=== PATIENT | female | born 1955 | race American Indian/Alaskan Native ===

== ENCOUNTER 2018-04-18 17:07 | Inpatient (IN) | payer MEDICARE ==
[2018-04-18] MEDS ORDERED: APRESOLINE IV ONE ×2 (17:32→21:54)
--- NOTE | 2018-04-18 17:33 | Emergency Department Report ---
ED General Adult HPI - General Chief complaint: High BP Stated complaint: HBP/HEADACHE/CHEST PAIN Time Seen by Provider: 04/18/18 17:22 Source: patient, RN notes reviewed Mode of arrival: Ambulatory Limitations: No Limitations - History of Present Illness Initial comments: Primary care Dr.: Dr. Marrero Past medical history: Multiple strokes, on permanent anticoagulation,; xarelto Hypertension, diabetes, right-sided thoracic wall port This is a 62-year-old female who is not known to this provider previously. Patient presents to the ER with a complaint of high blood pressure, which is accompanied by nontraumatic headache, which is midline, parietal, not sudden or thunderclap in nature, with an accompanying complaint of left-sided chest discomfort, chest pain, and intermittent left-sided arm weakness. The patient also endorsed to triage and her blurry vision, light sensitivity, and episodes of confusion. To this provider, the patient does not endorse confusion, blurry vision. Her symptoms are intermittent, do not radiate anywhere, and worsened when she moves her left arm, and when she "gets anxious." She reports compliance with her medications. -: Gradual Location: head, chest, left Radiation: non-radiation Quality: aching Consistency: intermittent Improves with: other Worsens with: other Associated Symptoms: confusion, chest pain, headaches, loss of appetite, malaise, weakness. denies: cough, diaphoresis, fever/chills, nausea/vomiting, rash, seizure, shortness of breath, syncope - Related Data Allergies Allergy/AdvReac Type Severity Reaction Status Date / Time codeine Allergy Itching Verified 04/18/18 17:10 latex Allergy Itching Verified 04/18/18 17:10 paroxetine [From Paxil] Allergy Unknown Verified 04/18/18 17:10 Penicillins Allergy Unknown Verified 04/18/18 17:10 Tetracyclines Allergy Unknown Verified 04/18/18 17:10 tomato Allergy Itching Verified 04/18/18 17:10 ED Review of Systems ROS: Stated complaint: HBP/HEADACHE/CHEST PAIN Other details as noted in HPI Constitutional: malaise. denies: fever Eyes: vision change ENT: denies: epistaxis Respiratory: denies: cough Cardiovascular: chest pain Gastrointestinal: denies: vomiting Genitourinary: denies: dysuria Musculoskeletal: arthralgia, myalgia Skin: denies: lesions Neurological: headache, weakness, numbness, paresthesias Psychiatric: anxiety ED Past Medical Hx - Past Medical History Previous Medical History?: Yes Hx Hypertension: Yes Hx Diabetes: Yes Additional medical history: MRSA - Surgical History Past Surgical History?: Yes Hx Appendectomy: Yes Additional Surgical History: hysterectomy. discectomy. LLE "hardware insertion". heart ablation - Social History Smoking Status: Current Every Day Smoker Substance Use Type: Alcohol ED Physical Exam - General Limitations: No Limitations General appearance: alert, anxious - Head Head exam: Present: atraumatic, normocephalic - Eye Eye exam: Present: normal appearance, PERRL, EOMI, other (visual acuity intact to finger counting, color perception, reading at a close distance). Absent: nystagmus - ENT ENT exam: Present: normal exam, normal orophraynx, mucous membranes moist, normal external ear exam - Neck Neck exam: Present: normal inspection, full ROM. Absent: tenderness, meningismus - Respiratory Respiratory exam: Present: normal lung sounds bilaterally. Absent: respiratory distress - Cardiovascular Cardiovascular Exam: Present: normal rhythm, bradycardia, normal heart sounds. Absent: tachycardia, irregular rhythm, systolic murmur, diastolic murmur, rubs, gallop - GI/Abdominal GI/Abdominal exam: Present: soft. Absent: distended, tenderness, guarding, rebound, rigid, pulsatile mass - Extremities Exam Extremities exam: Present: normal inspection, full ROM, other (2+ pulses noted in the bilateral upper, lower extremities. Compartments soft. No long bony tenderness. The pelvis is stable.). Absent: pedal edema, joint swelling, calf tenderness - Back Exam Back exam: Present: normal inspection, full ROM. Absent: tenderness, CVA tenderness (R), paraspinal tenderness, vertebral tenderness - Neurological Exam Neurological exam: Present: alert, oriented X3, normal gait, other (Extraocular movements intact. Tongue midline. No facial droop. Facial sensation intact to light touch in the V1, V2, V3 distribution bilaterally. 5 and 5 strength in 4 extremities.. Sensation is intact to light touch in 4 extremities.). Absent: motor sensory deficit - Psychiatric Psychiatric exam: Present: anxious - Skin Skin exam: Present: warm, dry, intact, normal color. Absent: rash ED Course Vital Signs 04/18/18 04/18/18 17:10 18:59 Temperature 97.9 F Pulse Rate 64 50 L Respiratory 18 Rate Blood Pressure 241/117 238/120 O2 Sat by Pulse 99 Oximetry - Reevaluation(s) Reevaluation #1: 04/18/18 19:33 Differential diagnosis, including but not limited to: Vertebrobasilar migraine, complex migraine, transient ischemic attack, stroke, acute coronary syndrome, pneumonia Assessment and plan: 62-year-old female with nonspecific neurologic symptoms and chest discomfort. Patient is on systemic anticoagulation, has equal pulses on the upper and lower extremities, is not tachycardic, is not hypoxic, and for these reasons I doubt a pulmonary embolus. Mediastinum appears to be within normal limits on the chest x-ray, and has equal pulses in the upper, lower extremities, therefore doubt aortic disease. Patient has an NIH score of 0, and is on systemic anticoagulation, and therefore is not a TPA candidate. Symptoms have been going on for greater than 24 hours, and therefore does not require emergent endovascular imaging. The patient is currently resting on a stretcher, and is noted to playing with a cellular phone. We will provide blood pressure control, symptom control, and admitted to the medical service for further evaluation for neurologic symptoms, chest discomfort, and blood pressure control. Reevaluation #2: 04/18/18 21:27 Dr. Marcano has accepted the patient to the medical service. ED Medical Decision Making - Lab Data Result diagrams: 04/18/18 19:00 04/18/18 19:00 Vital Signs 04/18/18 04/18/18 17:10 18:59 Temperature 97.9 F Pulse Rate 64 50 L Respiratory 18 Rate Blood Pressure 241/117 238/120 O2 Sat by Pulse 99 Oximetry Lab Results 04/18/18 Range/Units 19:00 WBC 5.5 (4.5-11.0) K/mm3 RBC 4.30 (3.65-5.03) M/mm3 Hgb 13.8 (10.1-14.3) gm/dl Hct 40.1 (30.3-42.9) % MCV 93 (79-97) fl MCH 32 (28-32) pg MCHC 34 (30-34) % RDW 12.8 L (13.2-15.2) % Plt Count 232 (140-440) K/mm3 Lymph % (Auto) 36.6 H (13.4-35.0) % [place] % (Auto) 12.7 H (0.0-7.3) % Eos % (Auto) 3.7 (0.0-4.3) % Baso % (Auto) 2.5 H (0.0-1.8) % Lymph # 2.0 (1.2-5.4) K/mm3 [place] # 0.7 (0.0-0.8) K/mm3 Eos # 0.2 (0.0-0.4) K/mm3 Baso # 0.1 (0.0-0.1) K/mm3 Seg Neutrophils % 44.5 (40.0-70.0) % Seg Neutrophils # 2.5 (1.8-7.7) K/mm3 Lab Results 04/18/18 04/18/18 04/18/18 Range/Units 19:00 19:00 19:00 WBC 5.5 (4.5-11.0) K/mm3 RBC 4.30 (3.65-5.03) M/mm3 Hgb 13.8 (10.1-14.3) gm/dl Hct 40.1 (30.3-42.9) % MCV 93 (79-97) fl MCH 32 (28-32) pg MCHC 34 (30-34) % RDW 12.8 L (13.2-15.2) % Plt Count 232 (140-440) K/mm3 Lymph % (Auto) 36.6 H (13.4-35.0) % [place] % (Auto) 12.7 H (0.0-7.3) % Eos % (Auto) 3.7 (0.0-4.3) % Baso % (Auto) 2.5 H (0.0-1.8) % Lymph # 2.0 (1.2-5.4) K/mm3 Isabela # 0.7 (0.0-0.8) K/mm3 Eos # 0.2 (0.0-0.4) K/mm3 Baso # 0.1 (0.0-0.1) K/mm3 Seg Neutrophils % 44.5 (40.0-70.0) % Seg Neutrophils # 2.5 (1.8-7.7) K/mm3 PT 13.1 (12.2-14.9) Sec. INR 0.95 (0.87-1.13) APTT 29.9 (24.2-36.6) Sec. Thrombin Time 17.7 (15.1-19.6) Sec. Sodium (137-145) mmol/L Potassium (3.6-5.0) mmol/L Chloride (98-107) mmol/L Carbon Dioxide (22-30) mmol/L Anion Gap mmol/L BUN (7-17) mg/dL Creatinine (0.7-1.2) mg/dL Estimated GFR ml/min BUN/Creatinine Ratio % Glucose (65-100) mg/dL Calcium (8.4-10.2) mg/dL Total Bilirubin (0.1-1.2) mg/dL AST (5-40) units/L ALT (7-56) units/L Alkaline Phosphatase (35-129) units/L Total Creatine Kinase 98 (30-135) units/L CK-MB (CK-2) 2.4 (0.0-4.0) ng/mL CK-MB (CK-2) Rel Index 2.4 (0-4) Troponin T < 0.010 (0.00-0.029) ng/mL Total Protein (6.3-8.2) g/dL Albumin (3.9-5) g/dL Albumin/Globulin Ratio % Salicylates (2.8-20.0) mg/dL Acetaminophen (10.0-30.0) ug/mL Plasma/Serum Alcohol (0-0.07) % 04/18/18 04/18/18 04/18/18 Range/Units 19:00 19:00 19:00 WBC (4.5-11.0) K/mm3 RBC (3.65-5.03) M/mm3 Hgb (10.1-14.3) gm/dl Hct (30.3-42.9) % MCV (79-97) fl MCH (28-32) pg MCHC (30-34) % RDW (13.2-15.2) % Plt Count (140-440) K/mm3 Lymph % (Auto) (13.4-35.0) % [place] % (Auto) (0.0-7.3) % Eos % (Auto) (0.0-4.3) % Baso % (Auto) (0.0-1.8) % Lymph # (1.2-5.4) K/mm3 Isabel[place] # (0.0-0.8) K/mm3 Eos # (0.0-0.4) K/mm3 Baso # (0.0-0.1) K/mm3 Seg Neutrophils % (40.0-70.0) % Seg Neutrophils # (1.8-7.7) K/mm3 PT (12.2-14.9) Sec. INR (0.87-1.13) APTT (24.2-36.6) Sec. Thrombin Time (15.1-19.6) Sec. Sodium 143 (137-145) mmol/L Potassium 3.6 (3.6-5.0) mmol/L Chloride 104.4 (98-107) mmol/L Carbon Dioxide 28 (22-30) mmol/L Anion Gap 14 mmol/L BUN 24 H (7-17) mg/dL Creatinine 1.0 (0.7-1.2) mg/dL Estimated GFR > 60 ml/min BUN/Creatinine Ratio 24 % Glucose 87 (65-100) mg/dL Calcium 9.6 (8.4-10.2) mg/dL Total Bilirubin 0.30 (0.1-1.2) mg/dL AST 65 H (5-40) units/L ALT 63 H (7-56) units/L Alkaline Phosphatase 87 (35-129) units/L Total Creatine Kinase (30-135) units/L CK-MB (CK-2) (0.0-4.0) ng/mL CK-MB (CK-2) Rel Index (0-4) Troponin T (0.00-0.029) ng/mL Total Protein 7.5 (6.3-8.2) g/dL Albumin 3.9 (3.9-5) g/dL Albumin/Globulin Ratio 1.1 % Salicylates < 0.3 L (2.8-20.0) mg/dL Acetaminophen (10.0-30.0) ug/mL Plasma/Serum Alcohol < 0.01 (0-0.07) % 04/18/18 Range/Units 19:00 WBC (4.5-11.0) K/mm3 RBC (3.65-5.03) M/mm3 Hgb (10.1-14.3) gm/dl Hct (30.3-42.9) % MCV (79-97) fl MCH (28-32) pg MCHC (30-34) % RDW (13.2-15.2) % Plt Count (140-440) K/mm3 Lymph % (Auto) (13.4-35.0) % [place] % (Auto) (0.0-7.3) % Eos % (Auto) (0.0-4.3) % Baso % (Auto) (0.0-1.8) % Lymph # (1.2-5.4) K/mm3 [place] # (0.0-0.8) K/mm3 Eos # (0.0-0.4) K/mm3 Baso # (0.0-0.1) K/mm3 Seg Neutrophils % (40.0-70.0) % Seg Neutrophils # (1.8-7.7) K/mm3 PT (12.2-14.9) Sec. INR (0.87-1.13) APTT (24.2-36.6) Sec. Thrombin Time (15.1-19.6) Sec. Sodium (137-145) mmol/L Potassium (3.6-5.0) mmol/L Chloride (98-107) mmol/L Carbon Dioxide (22-30) mmol/L Anion Gap mmol/L BUN (7-17) mg/dL Creatinine (0.7-1.2) mg/dL Estimated GFR ml/min BUN/Creatinine Ratio % Glucose (65-100) mg/dL Calcium (8.4-10.2) mg/dL Total Bilirubin (0.1-1.2) mg/dL AST (5-40) units/L ALT (7-56) units/L Alkaline Phosphatase (35-129) units/L Total Creatine Kinase (30-135) units/L CK-MB (CK-2) (0.0-4.0) ng/mL CK-MB (CK-2) Rel Index (0-4) Troponin T (0.00-0.029) ng/mL Total Protein (6.3-8.2) g/dL Albumin (3.9-5) g/dL Albumin/Globulin Ratio % Salicylates (2.8-20.0) mg/dL Acetaminophen < 5.0 L (10.0-30.0) ug/mL Plasma/Serum Alcohol (0-0.07) % - EKG Data -: EKG Interpreted by Me EKG shows normal: sinus rhythm - EKG Data 04/18/18 19:32 Limited by motion artifact. Sinus bradycardia, left axis deviation, QTC prolonged, incomplete right bundle branch block, abnormal EKG, not consistent with ST elevation myocardial infarction. - Radiology Data Radiology results: report reviewed, image reviewed X-ray of the chest is negative for acute disease. Noncontrast CT scan of brain is negative for acute disease. Critical care attestation.: If time is entered above; I have spent that time in minutes in the direct care of this critically ill patient, excluding procedure time. ED Disposition Clinical Impression: Hypertensive urgency, TIA (transient ischemic attack), Chest pain Disposition: OP ADMIT IP TO THIS HOSP Is pt being admited?: Yes Does the pt Need Aspirin: Yes Condition: Stable Instructions: Chest Pain (ED) Referrals: KELLIE ALICIA MD [Primary Care Provider] - 3-5 Days - Assessment Assessment Interval: Baseline - Level of Consciousness 1a. Level of Consciousness: alert/keenly responsive - LOC Questions 1b. LOC Questions: answers both correctly - LOC Command 1c. LOC Commands: performs tasks correctly - Best Gaze 2. Best Gaze: normal - Visual 3. Visual: no visual loss - Facial Palsy 4. Facial Palsy: normal symmetrical movement - Motor Arm 5b. Motor Arm Right: no drift 5a. Motor Arm Left: no drift - Motor Leg 6b. Motor Leg Right: no drift 6a. Motor Leg Left: no drift - Limb Ataxia 7. Limb Ataxia: absent - Sensory 8. Sensory: normal - Best Language 9. Best Language: no aphasia - Dysarthria 10. Dysarthria: normal - Extinction and Inattention 11. Extinction/Inattention: no abnormality - Scoring Total Score: 0 Stroke Severity: No Stroke Symptoms
--- NOTE | 2018-04-18 18:10 | XRay Report ---
FINAL REPORT EXAM: XR CHEST 1V AP HISTORY: cp TECHNIQUE: upright single view chest PRIORS: None. FINDINGS: Cardiac and mediastinal contours are unremarkable. No focal pulmonary infiltrate is identified. No pleural fluid collection seen. Pulmonary vasculature is unremarkable. There is a right chest port wi th catheter tip at the SVC. IMPRESSION: Negative single-view chest
[2018-04-18] MEDS ORDERED: BENADRYL IV ONE (18:56)
[2018-04-18] MEDS ORDERED: REGLAN IV ONE (18:56)
--- NOTE | 2018-04-18 19:00 | Cat Scan Report ---
FINAL REPORT EXAM: CT HEAD/BRAIN WO CON HISTORY: Stroke symptoms TECHNIQUE: CT head without contrast PRIORS: None. FINDINGS: No acute intra-axial or extra-axial hemorrhage is identified. There is no evidence of midline shift or mass effect. The ventricles and sulci are within normal limits. Farias-white matter differentiation is intact. No acute parenchymal abnormalities seen. There is encephalomalacia left occipital lobe co nsistent with remote infarct Bony calvarium is grossly intact. Visualized portions of the mastoids and paranasal sinuses are unre markable. IMPRESSION: Remote ischemic changes left occipital lobe Otherwise negative study.
[2018-04-18 19:20] LABS: Basophils # (Auto) 0.1 K/mm3 (0.0-0.1); Basophils % (Auto) 2.5 % (0.0-1.8); Eosinophils # (Auto) 0.2 K/mm3 (0.0-0.4); Eosinophils % (Auto) 3.7 % (0.0-4.3); Hematocrit 40.1 % (30.3-42.9); Hemoglobin 13.8 gm/dl (10.1-14.3); Lymphocytes % (Auto) 36.6 % (13.4-35.0); Mean Corpuscular HGB Conc 34 % (30-34); Mean Corpuscular Volume 93 fl (79-97); Monocytes # (Auto) 0.7 K/mm3 (0.0-0.8); Monocytes % (Auto) 12.7 % (0.0-7.3); Platelet Count 232 K/mm3 (140-440); Red Cell Distribution Width 12.8 % (13.2-15.2)
[2018-04-18] MEDS ORDERED: BABY ASPIRIN PO ONE (19:35)
[2018-04-18 19:36] LABS: Creatine Kinase MB 2.4 ng/mL (0.0-4.0)
[2018-04-18 19:37] LABS: Alanine Aminotransferase 63 units/L (7-56); Albumin 3.9 g/dL (3.9-5); BUN/Creatinine Ratio 24; Blood Urea Nitrogen 24 mg/dL (7-17); Calcium 9.6 mg/dL (8.4-10.2); Hemolysis Index 10
[2018-04-18 19:43] LABS: INR 0.95 (0.87-1.13)
[2018-04-18 19:44] LABS: Partial Thromboplastin Time 29.9 Sec. (24.2-36.6); Thrombin Time 17.7 Sec. (15.1-19.6)
[2018-04-18] MEDS ORDERED: APRESOLINE ONE (21:51)
--- NOTE | 2018-04-18 22:01 | History and Physical Report ---
History of Present Illness Date of examination: 04/18/18 History of present illness: 62-year-old with a history of hypertension, diabetes, CVA 2 comes to the emergency room with complaints of chest pain. The pain is in the retrosternal area which he describes the ache, intermittent lasting less than 5 minutes, intensity follow 10, no radiation but associated with left arm weakness. Weakness in the left arm is now resolved. Denies nausea or vomiting, shortness of breath, diaphoresis or palpitation. She saw her bisque tile burner this morning, her blood pressure was 279/119, she states she took her antihypertensive and when she got home she took somewhat antihypertensive but her blood pressure still remained very high. In the emergency room her blood pressures been unresponsive to IV medications Review of systems Constitutional: no weight loss, chills, fever Ears, eyes, nose, mouth and throat: no nasal congestion, no nasal discharge, no sinus pressure, no vision change, no red eye. Neck: No neck pain or rigidity. Cardiovascular: no palpitations, +chest pain Respiratory: no cough, shortness of breath Gastrointestinal: no hematochezia, abdominal pain Genitourinary : no frequency , no hematuria Musculoskeletal: no joint swelling or muscle ache Integumentary: no rash, no pruritis Neurological: no parathesias Endocrine: no cold or heat intolerance, no polyuria or polydipsia Hematologic/Lymphatic: no easy bruising, no easy bleeding, no gland swelling Allergic/Immunologic: no urticaria, no angioedema. PAST MEDICAL HISTORY: hypertension, diabetes, CVA 2 PAST SURGICAL HISTORY: Hysterectomy, back, leg surgery, ablation on the heart, discectomy SOCIAL HISTORY: Denies alcohol, drugs, smoke 1 pack a week FAMILY HISTORY: Hypertension Medications and Allergies Allergies Allergy/AdvReac Type Severity Reaction Status Date / Time codeine Allergy Itching Verified 04/18/18 17:10 latex Allergy Itching Verified 04/18/18 17:10 paroxetine [From Paxil] Allergy Unknown Verified 04/18/18 17:10 Penicillins Allergy Unknown Verified 04/18/18 17:10 Tetracyclines Allergy Unknown Verified 04/18/18 17:10 tomato Allergy Itching Verified 04/18/18 17:10 Exam - Physical Exam Narrative exam: General Apperance: The patient lying in bed, breathing comfortable HEENT: Normocephalic, atraumatic. Pupils equally round and reactive to light, EOMI, no sclericterus or JVD or thyromegaly or nodule. , no carotid bruit, mucous membranes moist, no exudate or erythema Heart: S1-S2, regular is rhythm Lungs: Clear to auscultation bilaterally, breathing comfortable Abdomen: Positive bowel sounds, soft, nontender, nondistended, no organomegaly Extremities: No edema cyanosis clubbing Skin: no rash, nodule, warm and dry Neuro: cranial nerves 2-12 intact, speech is fluent, motor/sensory intact - Constitutional Vitals: Temp Pulse Resp BP Pulse Ox 97.9 F 66 20 238/89 98 04/18/18 17:10 04/18/18 21:55 04/18/18 21:55 04/18/18 21:55 04/18/18 21:55 Results - Labs CBC & Chem 7: 04/19/18 02:05 04/18/18 19:00 Labs: Abnormal lab results 04/18/18 04/18/18 04/18/18 Range/Units 19:00 19:00 19:00 RDW 12.8 L (13.2-15.2) % Lymph % (Auto) 36.6 H (13.4-35.0) % [place] % (Auto) 12.7 H (0.0-7.3) % Baso % (Auto) 2.5 H (0.0-1.8) % BUN 24 H (7-17) mg/dL AST 65 H (5-40) units/L ALT 63 H (7-56) units/L Salicylates < 0.3 L (2.8-20.0) mg/dL Acetaminophen (10.0-30.0) ug/mL 04/18/18 Range/Units 19:00 RDW (13.2-15.2) % Lymph % (Auto) (13.4-35.0) % [place] % (Auto) (0.0-7.3) % Baso % (Auto) (0.0-1.8) % BUN (7-17) mg/dL AST (5-40) units/L ALT (7-56) units/L Salicylates (2.8-20.0) mg/dL Acetaminophen < 5.0 L (10.0-30.0) ug/mL - Imaging and Cardiology EKG: image reviewed Chest x-ray: report reviewed CT Scan - head: report reviewed Assessment and Plan Assessment Hypertensive urgency Chest pain diabetes VA 2 Plan Admit to medicine Start Cardene drip and monitor cardiac enzymes, stress test Consult critical care, check fingersticks, initiate insulin siding scale Continue appropriate outpatient medications DVT prophylaxis
[2018-04-18] MEDS ORDERED: MORPHINE IV PRN (22:45)
[2018-04-18 22:50] LABS: Amphetamine Screen,Urine PRESUMPTIVE NEGATIVE; Benzodiazepines Screen,Urine PRESUMPTIVE NEGATIVE; Cannabinoid Screen,Urine PRESUMPTIVE NEGATIVE; Cocaine Screen,Urine PRESUMPTIVE NEGATIVE; Methadone Screen,Urine PRESUMPTIVE NEGATIVE; Opiate Screen,Urine PRESUMPTIVE NEGATIVE
[2018-04-18 22:57] LABS: Bacteria,Urine 4+ /HPF (Negative); Bilirubin,Urine NEG (Negative); Blood,Urine NEG (Negative); Color,Urine Yellow (Yellow); Protein,Urine <15 mg/dL mg/dL (Negative); Urobilinogen,Urine < 2.0 mg/dL (<2.0)
[2018-04-18] MEDS: CARDENE 50 MG in NACL 0.9% 250ML 230 ML IV SCH (23:28)
[2018-04-18] MEDS ORDERED: TYLENOL PO PRN (23:34)
[2018-04-18] MEDS ORDERED: D50W (25GM) Syringe IV PRN (23:34)
[2018-04-18] MEDS ORDERED: ZOFRAN IV PRN (23:34)
[2018-04-18] MEDS ORDERED: SODIUM CHLORIDE FLUSH SYRINGE 10 ML IV PRN (23:34)
[2018-04-18] MEDS ORDERED: MORPHINE ONE (23:45)
[2018-04-19 00:29] LABS: Creatine Kinase MB 2.2 ng/mL (0.0-4.0)
[2018-04-19 03:03] LABS: Basophils # (Auto) 0.1 K/mm3 (0.0-0.1); Eosinophils # (Auto) 0.3 K/mm3 (0.0-0.4); Eosinophils % (Auto) 4.8 % (0.0-4.3); Hematocrit 43.1 % (30.3-42.9); Hemoglobin 14.3 gm/dl (10.1-14.3); Lymphocytes # (Auto) 2.3 K/mm3 (1.2-5.4); Lymphocytes % (Auto) 42.9 % (13.4-35.0); Mean Corpuscular HGB Conc 33 % (30-34); Mean Corpuscular Volume 94 fl (79-97); Monocytes # (Auto) 0.6 K/mm3 (0.0-0.8); Monocytes % (Auto) 11.9 % (0.0-7.3); Platelet Count 225 K/mm3 (140-440); Red Blood Count 4.59 M/mm3 (3.65-5.03); Red Cell Distribution Width 12.6 % (13.2-15.2)
[2018-04-19] MEDS ORDERED: D50W (25GM) Syringe IV PRN (03:37)
[2018-04-19 03:57] LABS: BUN/Creatinine Ratio 22; Blood Urea Nitrogen 20 mg/dL (7-17); Calcium 9.6 mg/dL (8.4-10.2); Hemolysis Index 17
[2018-04-19] MEDS ORDERED: MORPHINE IV PRN (04:55)
[2018-04-19] MEDS: CARDENE 50 MG in NACL 0.9% 250ML 230 ML IV SCH (05:18)
[2018-04-19 05:52] LABS: Creatine Kinase MB 2.1 ng/mL (0.0-4.0)
[2018-04-19] MEDS ORDERED: HumaLOG SUB-Q SCH (07:30)
[2018-04-19 09:33] VITALS: BP 155/61
[2018-04-19] MEDS ORDERED: LOVENOX SUB-Q SCH ×2 (10:00)
[2018-04-19] MEDS ORDERED: BABY ASPIRIN PO SCH (10:00)
[2018-04-19] MEDS ORDERED: SODIUM CHLORIDE FLUSH SYRINGE 10 ML IV SCH (10:00)
--- NOTE | 2018-04-19 10:10 | Discharge Summary ---
Providers - Providers Date of Admission: 04/18/18 22:44 Attending physician: BLANCA WELCH 04/18/18 23:33 Consult to Physician [CONS] Routine Comment: Consulting Provider: BLADIMIR WELSH Physician Instructions: Reason For Exam: cc Primary care physician: KELLIE ALICIA MD Hospitalization Condition: Stable Hospital course: Patient admitted to ICU for hypertensive malignancy. When I entered the room to introduce myself she started yelling and cursing at me, "Ain't shit wrong with my heart!" Then she proceeded to demand leave. She will sign out AMA. Disposition: DC-07 LEFT AGAINST MED ADVICE Time spent for discharge: 34 minutes Core Measure Documentation - Palliative Care Palliative Care/ Comfort Measures: Not Applicable - Core Measures Any of the following diagnoses?: none - VTE Discharge Requirements Deep Vein Thrombosis/Pulmonary Embolism Present on Admission: No Has pt received <5 days of overlap therapy or INR<2.0: No Anticoagulant overlap therapy prescribed at discharge: No Contraindication No Overlap Therapy order at DC: Not Indicated Exam - Constitutional Vitals: Temp Pulse Resp BP Pulse Ox 99.2 F 63 17 155/61 100 04/19/18 08:00 04/19/18 09:30 04/19/18 09:30 04/19/18 09:30 04/19/18 09:30 Plan Follow up with: KELLIE ALICIA MD [Primary Care Provider] - 3-5 Days
== END 2018-04-19 10:30 | disposition left against medical advice (07) | DRG 69 ==
LOC: ED 17:07 → CC1 22:44
PROVIDERS: ADMIT Internal Medicine; ATTEND Internal Medicine
DX: G45.9 Transient cerebral ischemic attack, unspecified (principal); I16.0 Hypertensive urgency; R07.9 Chest pain, unspecified; Z88.6 Allergy status to analgesic agent; Z88.0 Allergy status to penicillin; Z88.8 Allergy status to other drugs, medicaments and biological substances; Z91.018 Allergy to other foods; Z53.21 Procedure and treatment not carried out due to patient leaving prior to being seen by health care provider; E11.9 Type 2 diabetes mellitus without complications; I10 Essential (primary) hypertension; Z90.710 Acquired absence of both cervix and uterus; Z90.49 Acquired absence of other specified parts of digestive tract; F17.200 Nicotine dependence, unspecified, uncomplicated; Z82.49 Family history of ischemic heart disease and other diseases of the circulatory system
CPT/HCPCS: 36415; 70450; 71045; 80048; 80053; 80307; 80320; 81001; 82550; 82553; 84484; 85025; 85610; 85670; 85730; 93005; 93010; 94760; 96374; 96375; 96376; G0378; G0480; J0360; J1200; J2270; J2765; J7050

== ENCOUNTER 2021-06-21 17:51 | Emergency (ER) | payer MEDICARE ==
[2021-06-21] MEDS ORDERED: AMOXICILLIN/K CLAV 875/125MG TAB PO ONE (19:32)
[2021-06-21] MEDS ORDERED: HYDROcodone/ACETAMINOPHEN 5-325 MG TAB PO ONE (19:32)
[2021-06-21] MEDS ORDERED: TETANUS,DIPH,PERTUSS(ACELL) VACCINE 0.5 ML SYRINGE IM ONE (19:32)
[2021-06-21] MEDS ORDERED: LIDOCAINE 1%/EPINEPHRINE 1:100,000 VIAL (20 ML) INFILTRATI ONE (19:33)
[2021-06-21] MEDS ORDERED: SODIUM CHLORIDE 0.9% IRR 500 ML BOTTLE IR ONE (19:33)
[2021-06-21] MEDS ORDERED: SULFAMETHOXAZOLE/TRIMETHOPRIM 800/160MG DS TAB PO STA (20:35)
[2021-06-21] MEDS ORDERED: metroNIDAZOLE 500 MG TAB PO ONE (20:35)
--- NOTE | 2021-06-21 20:43 | Emergency Department Report ---
- General Chief Complaint: Animal Bite Stated Complaint: BIT BY DOG LT HAND BLEEDING Time Seen by Provider: 06/21/21 18:47 Source: patient Mode of arrival: Ambulatory Limitations: No Limitations - History of Present Illness Initial Comments: Chief complaint: Dog bite HPI: This is a 65-year-old female with a history of TIA, atrial fibrillation, hypertension who presents with dog bite to the left upper extremity. Her son's dog bit her after she reached out. Patient has 2 lacerations of the left wrist. Moderately severe pain. Bleeding controlled with pressure. The dog is fully vaccinated -: Sudden, This evening Location: other (Left wrist) Extremity Location: Left: Wrist Patient Tetanus UTD: Yes Context: other (Dog bite) Associated Symptoms: pain, other (Pain) Treatments Prior to Arrival: cold therapy, bandage - Related Data Home Medications Medication Instructions Recorded Confirmed Last Taken Adults 50 Plus Multivitamin Tb 1 tab PO DAILY 04/19/18 04/19/18 04/18/18 06:00 Bystolic 5 mg PO QHS 04/19/18 04/19/18 04/17/18 21:00 Clonidine HCl 0.1 mg PO DAILY 04/19/18 04/19/18 04/18/18 06:00 0.1 mg Gabapentin 300 mg PO TID 04/19/18 04/19/18 04/18/18 11:00 Losartan 50 mg PO QHS 04/19/18 04/19/18 04/17/18 21:00 Losartan 100 mg PO DAILY 04/19/18 04/19/18 04/18/18 06:00 Naproxen 500 mg PO BID 04/19/18 04/19/18 04/18/18 11:00 Potassium Chloride 20 meq PO DAILY 04/19/18 04/19/18 04/18/18 06:00 Rivaroxaban 10 mg PO QAM 04/19/18 04/19/18 04/18/18 06:00 Trelegy Ellipta 100-62.5-25 1 tab PO DAILY 04/19/18 04/19/18 Unknown Vesicare 10 mg PO DAILY 04/19/18 04/19/18 04/18/18 06:00 cloNIDine 0.2 mg PO QHS 04/19/18 04/19/18 04/17/18 21:00 hydrALAZINE 100 mg pe PO TID 04/19/18 04/19/18 04/18/18 11:00 Previous Rx's Medication Instructions Recorded Last Taken Type HYDROcodone/APAP 5-325 [Corinth 1 each PO Q6HR PRN #10 tablet 06/21/21 Unknown Rx 5/325] Sulfamethoxazole/Trimethoprim 1 each PO BID 7 Days #14 06/21/21 Unknown Rx [Bactrim DS TAB] metroNIDAZOLE [Flagyl TAB] 500 mg PO TID 7 Days #21 tablet 06/21/21 Unknown Rx Allergies Allergy/AdvReac Type Severity Reaction Status Date / Time codeine Allergy Itching Verified 04/18/18 17:10 latex Allergy Itching Verified 04/18/18 17:10 paroxetine [From Paxil] Allergy Unknown Verified 04/18/18 17:10 Penicillins Allergy Unknown Verified 04/18/18 17:10 Tetracyclines Allergy Unknown Verified 04/18/18 17:10 tomato Allergy Itching Verified 04/18/18 17:10 ED Review of Systems ROS: Stated complaint: BIT BY DOG LT HAND BLEEDING Other details as noted in HPI Comment: Unobtainable due to pts medical conditions Constitutional: denies: chills, fever, malaise Respiratory: denies: cough, orthopnea, shortness of breath Cardiovascular: denies: chest pain Gastrointestinal: denies: abdominal pain Skin: lesions ED Past Medical Hx - Past Medical History Previous Medical History?: Yes Hx Hypertension: Yes Hx Heart Attack/AMI: No Hx Congestive Heart Failure: No Hx Diabetes: Yes Hx Deep Vein Thrombosis: No Hx Pulmonary Embolism: Yes Hx GERD: No Hx Liver Disease: No Hx Renal Disease: No Hx Sickle Cell Disease: No Hx Arthritis: No Hx Headaches / Migraines: No Hx Seizures: No Hx Kidney Stones: No Hx Asthma: Yes Hx COPD: No Hx Tuberculosis: No Hx Dementia: No Hx HIV: No Additional medical history: MRSA, atrial fibrillation - Surgical History Past Surgical History?: Yes Hx Coronary Stent: No Hx Open Heart Surgery: No Hx Pacemaker: No Hx Internal Defibrillator: No Hx Cholecystectomy: No Hx Appendectomy: Yes Hx Breast Surgery: No Additional Surgical History: hysterectomy. discectomy. LLE "hardware insertion". heart ablation - Family History Family history: hypertension - Social History Smoking Status: Current Every Day Smoker Substance Use Type: None - Medications Home Medications: Home Medications Medication Instructions Recorded Confirmed Last Taken Type Adults 50 Plus Multivitamin Tb 1 tab PO DAILY 04/19/18 04/19/18 04/18/18 06:00 History Bystolic 5 mg PO QHS 04/19/18 04/19/18 04/17/18 21:00 History Clonidine HCl 0.1 mg PO DAILY 04/19/18 04/19/18 04/18/18 06:00 History 0.1 mg Gabapentin 300 mg PO TID 04/19/18 04/19/18 04/18/18 11:00 History Losartan 50 mg PO QHS 04/19/18 04/19/18 04/17/18 21:00 History Losartan 100 mg PO DAILY 04/19/18 04/19/18 04/18/18 06:00 History Naproxen 500 mg PO BID 04/19/18 04/19/18 04/18/18 11:00 History Potassium Chloride 20 meq PO DAILY 04/19/18 04/19/18 04/18/18 06:00 History Rivaroxaban 10 mg PO QAM 04/19/18 04/19/18 04/18/18 06:00 History Trelegy Ellipta 100-62.5-25 1 tab PO DAILY 04/19/18 04/19/18 Unknown History Vesicare 10 mg PO DAILY 04/19/18 04/19/18 04/18/18 06:00 History cloNIDine 0.2 mg PO QHS 04/19/18 04/19/18 04/17/18 21:00 History hydrALAZINE 100 mg pe PO TID 04/19/18 04/19/18 04/18/18 11:00 History HYDROcodone/APAP 5-325 [Corinth 1 each PO Q6HR PRN #10 tablet 06/21/21 Unknown Rx 5/325] Sulfamethoxazole/Trimethoprim 1 each PO BID 7 Days #14 06/21/21 Unknown Rx [Bactrim DS TAB] metroNIDAZOLE [Flagyl TAB] 500 mg PO TID 7 Days #21 tablet 06/21/21 Unknown Rx ED Physical Exam - General Limitations: No Limitations General appearance: alert, in no apparent distress - Head Head exam: Present: atraumatic, normocephalic - Eye Eye exam: Present: normal appearance. Absent: scleral icterus, conjunctival injection - ENT ENT exam: Present: mucous membranes moist - Neck Neck exam: Present: normal inspection, full ROM - Respiratory Respiratory exam: Absent: respiratory distress - GI/Abdominal GI/Abdominal exam: Present: soft. Absent: distended, tenderness - Extremities Exam Extremities exam: Absent: pedal edema - Neurological Exam Neurological exam: Present: alert, oriented X3 - Psychiatric Psychiatric exam: Present: normal affect, normal mood - Skin Skin exam: Present: other (4 cm wrist laceration subcutaneous tissue exposed volar aspect left wrist just proximal to the flexor crease of the hand, 2.5 cm deep laceration ulnar aspect of the wrist with subcutaneous tissue exuding) ED Course Vital Signs 06/21/21 18:30 Temperature 97.9 F Pulse Rate 74 Respiratory 20 Rate Blood Pressure 216/104 [Right] O2 Sat by Pulse 98 Oximetry - Laceration /Wound Repair Left Wrist Wound Location: upper extremity Wound's Depth, Shape: into muscle, contused tissue Wound Explored: clean Irrigated w/ Saline (ccs): 500 Anesthesia: Lidocaine w/ Epi Wound Debrided: moderate Wound Repaired With: sutures Suture Size/Type: 4:0, proline Number of Sutures: 3 (Horizontal mattress) Progress: 4 cm laceration: 3 suture horizontal mattress 4-0 Prolene 2.5 cm laceration: 2 sutures horizontal mattress, 2 sutures simple interrupted Total 500 mL normal saline irrigation alcohol prep ED Medical Decision Making - Medical Decision Making Animal bites to the left wrist with 2 lacerations requiring suture repair. Tetanus status up-to-date according to patient's report. Due to penicillin allergy patient received Bactrim and metronidazole in the emergency department. She also received hydrocodone/Corinth for pain. I prescribed Corinth Bactrim and metronidazole. Hypertensive urgency attributed to pain. No treatment needed at this time. Critical care attestation.: If time is entered above; I have spent that time in minutes in the direct care of this critically ill patient, excluding procedure time. ED Disposition Clinical Impression: Dog bite, Laceration of left wrist, Hypertensive urgency Disposition: 01 HOME / SELF CARE / HOMELESS Is pt being admited?: No Does the pt Need Aspirin: No Condition: Stable Instructions: Animal Bite, Adult, [id number], Laceration Care, Adult, [id number] Additional Instructions: You have 3 sutures and 4 sutures in each laceration respectively. Please have the sutures removed in 10 days. Prescriptions: Sulfamethoxazole/Trimethoprim [Bactrim DS TAB] 1 each PO BID 7 Days #14 metroNIDAZOLE [Flagyl TAB] 500 mg PO TID 7 Days #21 tablet HYDROcodone/APAP 5-325 [Corinth 5/325] 1 each PO Q6HR PRN #10 tablet PRN Reason: Pain Referrals: PRIMARY CARE, [Referring] - 7-10 days
[2021-06-22 05:54] VITALS: BP 201/102
== END 2021-06-21 21:32 | disposition home or self-care (01) ==
LOC: ED 17:51
DX: S61.512A Laceration without foreign body of left wrist, initial encounter (principal); W54.0XXA Bitten by dog, initial encounter; Y93.89 Activity, other specified; Y92.89 Other specified places as the place of occurrence of the external cause; Y99.8 Other external cause status; I16.0 Hypertensive urgency; F17.200 Nicotine dependence, unspecified, uncomplicated
CPT/HCPCS: 12002; 99282; J3490; 90715